=== PATIENT | male | born 1975 | race Caucasian/White ===

== ENCOUNTER 2017-09-26 01:44 | Emergency (ER) | payer MEDICAID ==
[~2017-09-26] VITALS: Ht 170.2 cm; Wt 72.6 kg
[2017-09-26 01:54] VITALS: Ht 170.2 cm; Wt 72.6 kg
[2017-09-26 07:06] VITALS: BP 141/86
== END 2017-09-26 07:06 | disposition home or self-care (01) ==
LOC: ED 01:44
DX: R51 Headache (principal)
CPT/HCPCS: J0780; J1100; J1200

== ENCOUNTER 2018-02-01 18:19 | Emergency (ER) | payer MEDICAID ==
[~2018-02-01] VITALS: Ht 175.3 cm; Wt 63.5 kg
[2018-02-01 18:28] VITALS: Ht 175.3 cm; Wt 63.5 kg
[2018-02-01 19:45] VITALS: BP 136/76
== END 2018-02-01 19:45 | disposition home or self-care (01) ==
LOC: ED 18:19
DX: R07.89 Other chest pain (principal); F15.10 Other stimulant abuse, uncomplicated; Z59.0 Homelessness
CPT/HCPCS: J1885

== ENCOUNTER 2018-02-02 22:49 | Emergency (ER) | payer MEDICAID ==
[~2018-02-02] VITALS: Ht 175.3 cm; Wt 65.3 kg
[2018-02-02 22:59] VITALS: BP 153/99; Ht 175.3 cm; Wt 65.3 kg
[2018-02-02 23:53] LABS: BASOPHIL % 0.7 % (0-2); PLATELET COUNT 382 x10^3mcL (130-400); RED CELL DISTRIBUTION WIDTH 13.6 % (11.5-14.5)
[2018-02-03 00:10] LABS: CALCIUM 8.8 mg/dL (8.5-10.1); CARBON DIOXIDE 30.6 mmol/L (21-32); CHLORIDE SERUM 105 mmol/L (98-107); CREATININE SERUM 0.7 mg/dL (0.7-1.3); GFR1 > 60 mL/min; GLUCOSE SERUM 112 mg/dL (74-106); POTASSIUM SERUM 3.2 mmol/L (3.5-5.1); SODIUM SERUM 141 mmol/L (136-145)
[2018-02-03 00:15] LABS: ALKALINE PHOSPHATASE 81 U/L (46-116); ALT/SGPT 46 U/L (16-63); AST/SGOT 26 U/L (15-37); BILIRUBIN TOTAL 0.1 mg/dL (0.20-1.00); TOTAL PROTEIN, SERUM 6.5 g/dL (6.4-8.2)
[2018-02-03 00:16] LABS: ALBUMIN 3.1 g/dL (3.4-5.0); C REACTIVE PROTEIN < 0.2 mg/dL (<=0.9)
[2018-02-03 00:44] LABS: ERYTHROCYTE SED RATE 21 mm/hr (0-15)
== END 2018-02-03 00:43 | disposition home or self-care (01) ==
LOC: ED 22:49
PROVIDERS: Emergency Medicine
DX: S60.562A Insect bite (nonvenomous) of left hand, initial encounter (principal); S60.561A Insect bite (nonvenomous) of right hand, initial encounter; L02.512 Cutaneous abscess of left hand; W57.XXXA Bitten or stung by nonvenomous insect and other nonvenomous arthropods, initial encounter; Y93.89 Activity, other specified; Y92.89 Other specified places as the place of occurrence of the external cause; Y99.8 Other external cause status
CPT/HCPCS: 36415; A4570

== ENCOUNTER 2018-02-03 11:43 | Emergency (ER) | payer MEDICAID ==
[~2018-02-03] VITALS: Ht 175.3 cm; Wt 64.4 kg
[2018-02-03 12:12] VITALS: BP 145/97; Ht 175.3 cm; Wt 64.4 kg
== END 2018-02-03 13:27 | disposition home or self-care (01) ==
LOC: ED 11:43
DX: R56.9 Unspecified convulsions (principal); L02.512 Cutaneous abscess of left hand; I10 Essential (primary) hypertension; F17.210 Nicotine dependence, cigarettes, uncomplicated; F15.20 Other stimulant dependence, uncomplicated; Z59.0 Homelessness; Z71.6 Tobacco abuse counseling
CPT/HCPCS: 99406